=== PATIENT | male | born 1970 | race Caucasian/White ===

== ENCOUNTER 2021-08-19 03:59 | Emergency (ER) | payer OTHER ==
[2021-08-19 04:35] VITALS: BP_SYST 119
--- NOTE | 2021-08-19 05:33 | NUR ---
patient states that he is going to leave 2nd to being able to walk now and is feeling better after taking a motrin. Patient will follow up with his primary doctor in [facility]. Left without being seen. MD Mathew notified.
== END 2021-08-19 05:33 | disposition left against medical advice (07) ==
LOC: SED 03:59
DX: M54.9 Dorsalgia, unspecified (principal); Z53.21 Procedure and treatment not carried out due to patient leaving prior to being seen by health care provider